=== PATIENT | female | born 2000 | race African-American/Black ===

== ENCOUNTER 2018-08-12 16:57 | Emergency (ER) | payer MEDICAID ==
[2018-08-12 17:46] LABS: #Basophils 0.1 thou/uL (0.0-0.2); #Lymphocytes 1.5 thou/uL (1.20-3.40); #Monocytes 0.3 thou/uL (0.11-0.59); #Neutrophils 2.8 thou/uL (1.40-6.50); %Basophils 1.5 % (0.0-1.0); %Eosinophils 0.2 % (0.0-10.0); %Lymphocytes 31.3 % (28.0-48.0); Hemoglobin 12.3 g/dL (12.0-16.0); Mean Corpuscular HGB CONC 34.6 g/dL (32.0-36.0); Mean Corpuscular Hemoglobin 27.7 pg (25.0-35.0); Mean Corpuscular Volume 80.1 fL (78.0-98.0); Mean Platelet Volume 11.9 fL (7.4-10.4); Platelet Count 181 thou/uL (130-400); RBC Distribution Width 14.2 % (11.5-14.5); Red Blood Cell (RBC) Count 4.45 mill/uL (4.00-5.20); White Blood Cell (WBC) Count 4.6 thou/uL (4.8-10.8)
[2018-08-12] MEDS ORDERED: Acetaminophen 325 MG TAB ONE (17:46)
[2018-08-12] MEDS ORDERED: diphenhydrAMINE 50 MG/ML VIAL ONE (17:46)
[2018-08-12] MEDS ORDERED: Promethazine HCl 25 MG/ML VIAL ONE (17:46)
[2018-08-12 18:09] LABS: ALT (SGPT) 19 U/L (8-55); AST (SGOT) 16 U/L (5-30); Alkaline Phosphatase 44 U/L (40-150); Anion Gap 13 mmol/L (10-20); BUN (Urea Nitrogen) 5 mg/dL (8.4-21.0); Bilirubin, Total Less than 0.2 mg/dL (0.2-1.2); Calc. Creatinine Clearance 0 mL/min (70-130); Calcium 9.2 mg/dL (7.8-10.44); Carbon Dioxide 21 mmol/L (22-29); Chloride 107 mmol/L (98-107); Estimated GFR-MDRD Greater than 90; Globulin 2.7 g/dL (2.4-3.5); Glucose 93 mg/dL (70-105); Potassium 3.6 mmol/L (3.5-5.1); Protein, Total 6.7 g/dL (6.0-8.3); Sodium 137 mmol/L (136-145)
[2018-08-12 18:34] LABS: Clarity Cloudy (Clear)
[2018-08-12 18:35] LABS: Bilirubin Negative (Negative); Blood, Urine Negative (Negative); Glucose, Urine (Dipstick) Negative (Negative); Leukocyte Large (Negative); Nitrite Negative (Negative); Protein, Urine (Dipstick) Negative (Neg-Trace); Specific Gravity, Urine 1.015 (1.005-1.030); Urobilinogen 0.2 mg/dL (0.2-1.0)
[2018-08-12 18:38] LABS: RBC/HPF 0-3 HPF (0-3); WBC/HPF 21-50 HPF (0-3)
[2018-08-12 18:39] LABS: Bacteria/HPF 3+ HPF (None Seen); Other Microscopic Description CLUE CELLS; Renal Epithelial 0-3 HPF (0-3)
== END 2018-08-12 18:44 | disposition home or self-care (01) ==
LOC: BURERS 16:57
DX: O99.89 Other specified diseases and conditions complicating pregnancy, childbirth and the puerperium (principal); R51 Headache; Z3A.13 13 weeks gestation of pregnancy
CPT/HCPCS: 80053; 81003; 81015; 85025; 87077; 87086; J1200; J2550

== ENCOUNTER 2018-11-28 18:00 | Emergency (ER) | payer OTHER ==
[2018-11-28] MEDS ORDERED: Ondansetron ODT 4 MG TAB ONE (18:17)
[2018-11-28 18:30] LABS: Clarity Cloudy (Clear)
[2018-11-28 18:31] LABS: Bilirubin Negative (Negative); Blood, Urine Negative (Negative); Glucose, Urine (Dipstick) Negative (Negative); Leukocyte Trace (Negative); Nitrite Negative (Negative); Protein, Urine (Dipstick) Negative (Neg-Trace); Urobilinogen 0.2 mg/dL (0.2-1.0)
[2018-11-28 18:37] LABS: Bacteria/HPF Rare-Few HPF (None Seen); Crystals/HPF None Seen HPF (Negative); Hyaline Casts/LPF NONE SEEN LPF (0-3 Hyaline); Other Casts/LPF None Seen LPF (0-3 Hyaline); Oval Fat Bodies/HPF None Seen HPF (None Seen); RBC/HPF None Seen HPF (0-3); Renal Epithelial None Seen HPF (0-3); Sperm/HPF None Seen HPF (None Seen); Transitional Epithelial NONE SEEN HPF (0-3); Trichomonas/HPF None Seen HPF (None Seen); Yeast-All Forms None Seen HPF (None Seen)
[2018-11-28] MEDS ORDERED: Cephalexin 500 MG CAP ONE (18:47)
== END 2018-11-28 18:49 | disposition home or self-care (01) ==
LOC: BURERS 18:00
DX: O21.9 Vomiting of pregnancy, unspecified (principal); Z79.899 Other long term (current) drug therapy
CPT/HCPCS: 81003; 81015; 87086; 99284; Q0162